=== PATIENT | male | born 1955 | race African-American/Black ===

== ENCOUNTER 2016-10-27 02:49 | Inpatient (IN) | payer MEDICAID ==
[2016-10-27] VITALS (11 sets, daily range): BP systolic 148–207; BP diastolic 64–113
[~2016-10-27] VITALS: Ht 180.3 cm; Wt 73.9 kg
[2016-10-27 03:25] LABS: MEAN CORPUSCULAR HEMOGLOBIN 28.4 PG (27.0-31.0); MEAN CORPUSCULAR HGB CONC 32.1 G/DL (32.0-36.0); MEAN CORPUSCULAR VOLUME 88 FL (80-99); PLATELET COUNT 433 K/UL (150-450); RED BLOOD COUNT 4.93 M/UL (4.70-6.10); RED CELL DISTRIBUTION WIDTH 14.3 % (11.6-14.8)
[2016-10-27 03:28] LABS: WHITE BLOOD COUNT 24.6 K/UL (4.8-10.8)
[2016-10-27] MEDS ORDERED: Ketorolac 30mg Inj IV ONE (03:30)
[2016-10-27] MEDS ORDERED: Morphine Sulfate 4mg/ml Inj IVP ONE (03:30)
[2016-10-27 03:37] LABS: ALANINE AMINOTRANSFERASE 10 U/L (3-41); ANION GAP 24 (5-15); ASPARTATE AMINO TRANSFERASE 16 U/L (5-40); CALCIUM 9.8 mg/dL (8.6-10.2); CARBON DIOXIDE 22 mEQ/L (20-30); CHLORIDE 92 mEQ/L (98-107); GLOMERULAR FILTRATION RATE > 60 mL/min (>60); HEMOLYSIS 8; POTASSIUM 3.2 mEQ/L (3.4-4.9); SODIUM 138 mEQ/L (135-145); TOTAL PROTEIN 8.9 g/dL (6.6-8.7)
[2016-10-27 03:39] LABS: TROPONIN I < 0.30 ng/mL (<=0.30)
[2016-10-27 03:47] LABS: CKMB 3.2 ng/mL (< 6.7)
[2016-10-27 03:52] LABS: BAND NEUTROPHILS % (MANUAL) 3 % (0-8); BASOPHILS % (MANUAL) 3 % (0-2); EOSINOPHILS % (MANUAL) 0 % (0-3); LYMPHOCYTES % (MANUAL) 7 % (20-45); NEUTROPHILS % (MANUAL) 82 % (45-75); PLATELET ESTIMATE ADEQUATE; PLATELET MORPHOLOGY NORMAL; TOTAL CELLS COUNTED 100
[2016-10-27 04:02] LABS: KETONES,URINE 1+ (NEGATIVE); LEUKOCYTE ESTERASE ,URINE 2+ (NEGATIVE); NITRITE,URINE NEGATIVE (NEGATIVE); PH,URINE 5 (4.5-8.0); PROTEIN,URINE 3+ (NEGATIVE); UROBILINOGEN,URINE 1 MG/DL (0.0-1.0)
[2016-10-27 04:04] LABS: APPEARANCE,URINE SLIGHTLY CLOUDY
[2016-10-27 04:09] LABS: AMORPHOUS SEDIMENT,UR MANY /LPF; BACTERIA,URINE MANY /HPF; RBC,URINE 30-40 /HPF (0 - 0); SQUAMOUS EPITHELIAL CELL,UR FEW /LPF (NONE/OCC); WBC,URINE 15-20 /HPF (0 - 0)
[2016-10-27 04:09] LABS: REFLEX LACTIC ACID YES OR NO YES
[2016-10-27] MEDS ORDERED: NS 1000ml 2,200 ML IVLG ONE (04:30)
[2016-10-27] MEDS ORDERED: cefTRIAXone 1 GM in NS 55 ML IVPB ONE (04:30)
[2016-10-27] MEDS ORDERED: NIFEDIPINE ER90 M2 ORAL (05:17)
--- NOTE | 2016-10-27 05:38 | Emergency Room Report ---
History of Present Illness General Chief Complaint: Lower Extremity Injury Source: Significant Other, EMS Present Illness HPI 60-year-old male presents to ED for evaluation. Per EMS patient called 911 because he was complaining of leg pain which started at 1:30 this morning. Denies trauma. Patient points to his calves stating there is pain. Pain is a 10 out of 10. Sharp. Nonradiating. No other aggravating or relieving factors. Denies chest pain or shortness of breath. Denies fevers or chills. Denies nausea or vomiting. Patient is poor historian-does not know his medications or his PMD. is at bedside states that patient has triggered chronic back and leg pain. Takes OxyContin. Patient also has history of hypertension. History of CVA with left-sided weakness. Denies any other associated symptoms Allergies: Coded Allergies: No Known Allergies (Unverified , 10/27/16) Patient History Past Medical History: HTN, CVA/TIA Past Surgical History: none Pertinent Family History: none Social History: Denies: alcohol use, drug use, smoking Immunizations: UTD Reviewed Nursing Documentation: PMH: Agreed, PSxH: Agreed Nursing Documentation-PMH Hx Cardiac Problems: Yes Hx Hypertension: Yes Hx Cerebrovascular Accident: Yes - LEFT SIDE WEAKNESS Review of Systems All Other Systems: negative except mentioned in HPI Physical Exam Vital Signs Date Time Temp Pulse Resp B/P Pulse Ox O2 Delivery O2 Flow Rate FiO2 10/27/16 02:42 97.5 98 20 201/108 100 Room Air Sp02 EP Interpretation: reviewed, normal General Appearance: alert, GCS 15, non-toxic, mild distress, cachetic, thin Head: normocephalic Eyes: bilateral eye PERRL, bilateral eye normal inspection ENT: normal ENT inspection Neck: normal inspection Respiratory: chest non-tender, lungs clear, normal breath sounds, speaking full sentences Cardiovascular #1: regular rate, rhythm, no edema Gastrointestinal: normal bowel sounds, non tender, soft, non-distended, no guarding, no rebound Rectal: deferred Genitourinary: no CVA tenderness Musculoskeletal: normal inspection Neurologic: alert, responsive, motor strength/tone normal, sensory intact, speech normal Psychiatric: no suicidal/homicidal ideation, no delusions Skin: normal inspection Lymphatic: normal inspection Medical Decision Making Diagnostic Impression: Primary Impression: Sepsis Qualified Codes: A41.9 - Sepsis, unspecified organism Additional Impressions: UTI (urinary tract infection) Qualified Codes: N39.0 - Urinary tract infection, site not specified Hypertensive urgency Chronic pain Qualified Codes: G89.29 - Other chronic pain ER Course Hospital Course 60-year-old male presenting to ED with bilateral leg pain, hypertensive. patient is poor historian Differential diagnoses include: Pneumonia, UTI, sepsis, dehydration, MO/ unstable angina Clinical course Patient placed on stretcher. 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 After initial history and physical, I ordered labs, IV fluids, EKG, chest x-ray, blood cultures, UA. Labs - electrolytes ok, marked leukocytosis, troponins negative, lactate 3.5, UA grossly positive for UTI CXR - no acute process Abx given. Patient given 30 mL per KG fluid bolus. patient required multiple rounds of blood pressure medication with BP control Case discussed with Dr Lee and they agreed to admit patient to their service for further care and support I feel this is a highly complex case requiring extensive working including EKG/ Rhythm strip, Xray/CT/US, Blood/urine lab work, repeat exams while in ED, and administration of strong opiates/narcotics for pain control, admission to hospital or close patient follow up. Diagnosis - sepsis, UTI, hypertensive urgency, chronic pain Patient admitted to telemetry in serious condition Labs Test 10/27/16 03:15 10/27/16 03:40 10/27/16 04:00 White Blood Count 24.6 K/UL (4.8-10.8) Red Blood Count 4.93 M/UL (4.70-6.10) Hemoglobin 14.0 G/DL (14.2-18.0) Hematocrit 43.6 % (42.0-52.0) Mean Corpuscular Volume 88 FL (80-99) Mean Corpuscular Hemoglobin 28.4 PG (27.0-31.0) Mean Corpuscular Hemoglobin Concent 32.1 G/DL (32.0-36.0) Red Cell Distribution Width 14.3 % (11.6-14.8) Platelet Count 433 K/UL (150-450) Mean Platelet Volume 6.0 FL (6.5-10.1) Neutrophils (%) (Auto) % (45.0-75.0) Lymphocytes (%) (Auto) % (20.0-45.0) Monocytes (%) (Auto) % (1.0-10.0) Eosinophils (%) (Auto) % (0.0-3.0) Basophils (%) (Auto) % (0.0-2.0) Differential Total Cells Counted 100 Neutrophils % (Manual) 82 % (45-75) Lymphocytes % (Manual) 7 % (20-45) Monocytes % (Manual) 5 % (1-10) Eosinophils % (Manual) 0 % (0-3) Basophils % (Manual) 3 % (0-2) Band Neutrophils 3 % (0-8) Platelet Estimate Adequate Platelet Morphology Normal Red Blood Cell Morphology Normal Sodium Level 138 mEQ/L (135-145) Potassium Level 3.2 mEQ/L (3.4-4.9) Chloride Level 92 mEQ/L (98-107) Carbon Dioxide Level 22 mEQ/L (20-30) Anion Gap 24 (5-15) Blood Urea Nitrogen 16 mg/dL (7-23) Creatinine 1.0 mg/dL (0.7-1.2) Estimat Glomerular Filtration Rate > 60 mL/min (>60) Glucose Level 216 mg/dL (74-106) Calcium Level 9.8 mg/dL (8.6-10.2) Total Bilirubin 0.3 mg/dL (0.0-1.2) Aspartate Amino Transf (AST/SGOT) 16 U/L (5-40) Alanine Aminotransferase (ALT/SGPT) 10 U/L (3-41) Alkaline Phosphatase 105 U/L (40-129) Total Creatine Kinase 126 U/L (38-174) Creatine Kinase MB 3.2 ng/mL (< 6.7) Creatine Kinase MB Relative Index 2.5 Troponin I < 0.30 ng/mL (<=0.30) Total Protein 8.9 g/dL (6.6-8.7) Albumin 4.5 g/dL (3.5-5.2) Globulin 4.4 g/dL Albumin/Globulin Ratio 1.0 (1.0-2.7) Lactic Acid Level 3.50 mmol/L (0.66-2.22) Urine Color Yellow Urine Appearance Slightly cloudy Urine pH 5 (4.5-8.0) Urine Specific [place] 1.025 (1.005-1.035) Urine Protein 3+ (NEGATIVE) Urine Glucose (UA) 1+ (NEGATIVE) Urine Ketones 1+ (NEGATIVE) Urine Occult Blood 5+ (NEGATIVE) Urine Nitrite Negative (NEGATIVE) Urine Bilirubin Negative (NEGATIVE) Urine Urobilinogen 1 MG/DL (0.0-1.0) Urine Leukocyte Esterase 2+ (NEGATIVE) Urine RBC 30-40 /HPF (0 - 0) Urine WBC 15-20 /HPF (0 - 0) Urine Squamous Epithelial Cells Few /LPF (NONE/OCC) Urine Amorphous Sediment Many /LPF (NONE) Urine Bacteria Many /HPF (NONE) EKG Diagnostic Results Rate: normal Rhythm: NSR ST Segments: other - LVH ASA given to the pt in ED: No Rhythm Strip Diag. Results EP Interpretation: yes Rhythm: NSR, no PVC's, no ectopy Chest X-Ray Diagnostic Results EP Interpretation: Yes Findings: no consolidation, no effusion, no pneumothorax, no acute cardiopulmonary disease Number of Views: 1 Last Vital Signs Date Time Temp Pulse Resp B/P Pulse Ox O2 Delivery O2 Flow Rate FiO2 10/27/16 04:39 193/105 10/27/16 04:04 97.5 83 13 100 Room Air Status: improved Disposition: ADMITTED INPATIENT Condition: Serious Referrals: [facility],REFERRING (PCP) ANGELITA XIONG M.D. Oct 27, 2016 05:38
[2016-10-27] MEDS ORDERED: Enalaprilat 2.5mg/2ml Inj IV ONE ×2 (07:23→07:30)
--- NOTE | 2016-10-27 18:59 | History and Physical Report ---
DATE OF ADMISSION: 10/27/2016 HISTORY OF PRESENT ILLNESS: This is a 60-year-old male, who came to the hospital with left leg pain. He states that his calves are hurting him. He was found to be markedly hypertensive. He was also found to have a urinary tract infection. The patient is a very poor historian. The patient reports chronic back and leg pain. He takes OxyContin. He also has history of hypertension. He has history of previous CVA with left-sided weakness. PAST MEDICAL HISTORY: Hypertension, previous CVA. PREVIOUS SURGERIES: None recalled. HOME MEDICATIONS: The patient is unable to recall. REVIEW OF SYSTEMS: Denies any headaches, hematemesis, melena, hematochezia, night sweats, or weight loss. PHYSICAL EXAMINATION: GENERAL: Reveals a 60-year-old male looking much older than stated age. VITAL SIGNS: Blood pressure earlier was 200/108, respirations of 20 with a heart rate of 98. Most recent vital signs show blood pressure 180/80, heart rate is 85, respirations 17, he is afebrile, and O2 saturation is 96% on room air. HEENT: Unremarkable. CHEST: Shows clear breath sounds bilaterally. ABDOMEN: Soft. EXTREMITIES: There is no edema. NEUROLOGIC: Notable for left-sided weakness. LABORATORY DATA: Lab testing shows white count 24,000, hemoglobin of 14. Remainder of chemistries unremarkable with a potassium of 3.2 and a glucose of 216. Lactic acid 3.5, follow up was 1.5. Troponin negative x1. Urinalysis shows multiple WBCs. IMAGING STUDIES: None reported. IMPRESSION: 1. Urinary tract infection. 2. Marked leukocytosis. 3. Chronic pain. 4. Hypertension. 5. Previous cerebrovascular accident. DISCUSSION: We will admit him to the hospital. Continue home medications. Start intravenous antibiotics. Pain management consult. ID consult. We will follow as skip tracer. Hemant Lee M.D. DR: SHAMEKA JOB#: [id number] CC:
[2016-10-27] MEDS: Metoprolol 25mg tab ORAL SCH (21:39)
[2016-10-27] MEDS: Heparin 5000 units/ml inj SUBQ SCH (21:43)
[2016-10-28] VITALS: BP 123/85
[2016-10-28 04:30] VITALS: BP 197/87
[2016-10-28 08:13] VITALS: BP 167/97
[2016-10-28 09:36] LABS: BASOPHILS % (AUTO) 1.4 % (0.0-2.0); EOSINOPHILS % (AUTO) 3.1 % (0.0-3.0); LYMPHOCYTES % (AUTO) 15.5 % (20.0-45.0); MEAN CORPUSCULAR HEMOGLOBIN 28.5 PG (27.0-31.0); MEAN CORPUSCULAR HGB CONC 32.2 G/DL (32.0-36.0); MEAN CORPUSCULAR VOLUME 89 FL (80-99); MONOCYTES % (AUTO) 6.1 % (1.0-10.0); PLATELET COUNT 366 K/UL (150-450); RED BLOOD COUNT 4.39 M/UL (4.70-6.10); RED CELL DISTRIBUTION WIDTH 14.6 % (11.6-14.8); WHITE BLOOD COUNT 8.7 K/UL (4.8-10.8)
[2016-10-28 09:47] LABS: ANION GAP 14 (5-15); CALCIUM 9.2 mg/dL (8.6-10.2); CARBON DIOXIDE 24 mEQ/L (20-30); CHLORIDE 100 mEQ/L (98-107); CREATININE 0.8 mg/dL (0.7-1.2); GLOMERULAR FILTRATION RATE > 60 mL/min (>60); HEMOLYSIS 5; SODIUM 138 mEQ/L (135-145)
[2016-10-28] MEDS: Metoprolol 25mg tab ORAL SCH (09:57)
[2016-10-28] MEDS: Heparin 5000 units/ml inj SUBQ SCH (09:58)
--- NOTE | 2016-10-28 10:03 | Cardiology Report ---
APPROVED REPORT EKG Measurement Heart [id number] Normal sinus rhythm Right atrial enlargement Left ventricular hypertrophy with repolarization abnormality Cannot rule out Septal infarct, age undetermined Abnormal ECG
--- NOTE | 2016-10-28 10:53 | Diagnostic Imaging Report ---
Clinical history: Chest pain. Technique: Portable AP chest radiograph was obtained. Comparison: None Findings: The lungs are well inflated and clear. There is no pneumonia or pulmonary edema. There is no pleural effusion or pneumothorax. The cardiac and mediastinal silhouettes are normal in appearance. The bony thorax is unremarkable. Impression: No acute cardiopulmonary process.
--- NOTE | 2016-10-28 11:01 | Pulmonology Progress Note ---
Assessment/Plan Assessment/Plan IMPRESSION: 1. Urinary tract infection. 2. Marked leukocytosis. 3. Chronic pain. 4. Hypertension. 5. Previous cerebrovascular accident. DISCUSSION: DC Home PO abx Subjective Interval Events: Doing better; anxious to go home Constitutional: Reports: no symptoms HEENT: Repors: no symptoms Respiratory: Reports: no symptoms Cardiovascular: Reports: no symptoms Gastrointestinal/Abdominal: Reports: no symptoms Genitourinary: Reports: no symptoms Allergies: Coded Allergies: No Known Allergies (Unverified , 10/27/16) Objective Last 24 Hour Vital Signs Date Time Temp Pulse Resp B/P Pulse Ox O2 Delivery O2 Flow Rate FiO2 10/28/16 09:57 62 167/97 10/28/16 09:57 62 167/97 10/28/16 08:13 97.3 62 20 167/97 99 Room Air 10/28/16 05:27 197/87 10/28/16 04:30 197/87 10/28/16 04:30 97.9 66 20 96 Room Air 10/28/16 03:52 63 10/28/16 00:00 97.0 63 20 123/85 99 Room Air 10/27/16 23:45 74 10/27/16 21:39 80 148/64 10/27/16 20:00 97.0 80 19 148/64 98 Room Air 10/27/16 19:53 58 10/27/16 19:52 71 10/27/16 16:00 75 10/27/16 16:00 97.0 76 18 164/89 98 Room Air 10/27/16 12:00 97.5 78 16 156/98 100 Room Air 10/27/16 12:00 76 Intake and Output 10/27/16 10/28/16 19:00 07:00 Output Total 300 ml Balance -300 ml Output Urine Total 300 ml # Voids 3 4 # Bowel Movements 1 General Appearance: no acute distress HEENT: normocephalic Respiratory/Chest: chest wall non-tender, lungs clear Cardiovascular: normal peripheral pulses, normal rate Microbiology Date/Time Source Procedure Growth Status 10/27/16 04:00 Urine,Clean Catch Urine Culture - Preliminary Streptococcus Species Resulted Laboratory Tests 10/28/16 08:15: White Blood Count 8.7#, Red Blood Count 4.39L, Hemoglobin 12.5L, Hematocrit 38.9L, Mean Corpuscular Volume 89, Mean Corpuscular Hemoglobin 28.5, Mean Corpuscular Hemoglobin Concent 32.2, Red Cell Distribution Width 14.6, Platelet Count 366, Mean Platelet Volume 6.0L, Neutrophils (%) (Auto) 74.0, Lymphocytes ( %) (Auto) 15.5L, Monocytes (%) (Auto) 6.1, Eosinophils (%) (Auto) 3.1H, Basophils (%) (Auto) 1.4, Sodium Level 138, Potassium Level 4.0, Chloride Level 100, Carbon Dioxide Level 24, Anion Gap 14, Blood Urea Nitrogen 10, Creatinine 0.8, Estimat Glomerular Filtration Rate > 60, Glucose Level 95#, Calcium Level 9.2 Current Medications Medications (Trade) Dose Ordered Sig/Nishant Route PRN Reason Start Time Stop Time Status Last Admin Dose Admin Clonidine HCl 0.1 mg 0.1 mg Q4H PRN ORAL For High Blood Pressure 10/27/16 11:15 11/26/16 11:14 10/28/16 05:27 Heparin Sodium (Porcine) (Heparin 5000 units/ml) 5,000 units EVERY 12 HOURS SUBQ 10/27/16 21:00 11/26/16 20:59 10/28/16 09:58 Levofloxacin (Levaquin) 100 ml @ 100 mls/hr Q24H IVPB 10/27/16 12:00 11/03/16 11:59 10/27/16 13:43 Metoprolol Tartrate (Lopressor) 25 mg Q12HR ORAL 10/27/16 21:00 11/26/16 20:59 10/28/16 09:57 Nifedipine (Procardia XL) 90 mg DAILY ORAL 10/28/16 09:00 11/27/16 08:59 10/28/16 09:57 Oxycodone/ Acetaminophen (Percocet 10/325) 1 tab Q4H PRN ORAL severe pain 10/27/16 15:15 11/03/16 15:14 Hemant Lee MD Oct 28, 2016 11:01
[2016-10-28] MEDS ORDERED: PERCOCET 10-321 EACH ORAL (11:03)
[2016-10-28] MEDS ORDERED: LEVAQUIN500 MG ORAL (11:03)
[2016-10-28] MEDS ORDERED: LOPRESSOR25 M1 ORAL (11:03)
[2016-10-28 11:29] VITALS: BP 199/107
[2016-10-28 11:32] VITALS: BP 199/107
--- NOTE | 2016-10-28 14:29 | Cardiology Progress Note ---
Assessment/Plan Assessment/Plan The patient is seen and examined, full consult will be dictated. Objective Last 24 Hour Vital Signs Date Time Temp Pulse Resp B/P Pulse Ox O2 Delivery O2 Flow Rate FiO2 10/28/16 11:32 199/107 10/28/16 11:29 97.6 68 20 199/107 98 Room Air 10/28/16 09:57 62 167/97 10/28/16 09:57 62 167/97 10/28/16 08:13 97.3 62 20 167/97 99 Room Air 10/28/16 08:00 63 10/28/16 05:27 197/87 10/28/16 04:30 197/87 10/28/16 04:30 97.9 66 20 96 Room Air 10/28/16 03:52 63 10/28/16 00:00 97.0 63 20 123/85 99 Room Air 10/27/16 23:45 74 10/27/16 21:39 80 148/64 10/27/16 20:00 97.0 80 19 148/64 98 Room Air 10/27/16 19:53 58 10/27/16 19:52 71 10/27/16 16:00 75 10/27/16 16:00 97.0 76 18 164/89 98 Room Air Intake and Output 10/27/16 10/28/16 19:00 07:00 Output Total 300 ml Balance -300 ml Output Urine Total 300 ml # Voids 3 4 # Bowel Movements 1 Laboratory Tests Test 10/28/16 08:15 White Blood Count 8.7 K/UL (4.8-10.8) # Red Blood Count 4.39 M/UL (4.70-6.10) L Hemoglobin 12.5 G/DL (14.2-18.0) L Hematocrit 38.9 % (42.0-52.0) L Mean Corpuscular Volume 89 FL (80-99) Mean Corpuscular Hemoglobin 28.5 PG (27.0-31.0) Mean Corpuscular Hemoglobin Concent 32.2 G/DL (32.0-36.0) Red Cell Distribution Width 14.6 % (11.6-14.8) Platelet Count 366 K/UL (150-450) Mean Platelet Volume 6.0 FL (6.5-10.1) L Neutrophils (%) (Auto) 74.0 % (45.0-75.0) Lymphocytes (%) (Auto) 15.5 % (20.0-45.0) L Monocytes (%) (Auto) 6.1 % (1.0-10.0) Eosinophils (%) (Auto) 3.1 % (0.0-3.0) H Basophils (%) (Auto) 1.4 % (0.0-2.0) Sodium Level 138 mEQ/L (135-145) Potassium Level 4.0 mEQ/L (3.4-4.9) Chloride Level 100 mEQ/L (98-107) Carbon Dioxide Level 24 mEQ/L (20-30) Anion Gap 14 (5-15) Blood Urea Nitrogen 10 mg/dL (7-23) Creatinine 0.8 mg/dL (0.7-1.2) Estimat Glomerular Filtration Rate > 60 mL/min (>60) Glucose Level 95 mg/dL (74-106) # Calcium Level 9.2 mg/dL (8.6-10.2) Microbiology Date/Time Source Procedure Growth Status 10/27/16 04:00 Urine,Clean Catch Urine Culture - Preliminary Streptococcus Species Resulted BOOGIE FLOREZ Oct 28, 2016 14:29
[2016-10-28] MEDS ORDERED: Tubing IV Secondary IV ONE (15:42)
--- NOTE | 2016-10-28 20:58 | Consultation ---
DATE OF CONSULTATION: 10/28/2016 CARDIOLOGY CONSULTATION CONSULTING PHYSICIAN: Sven Chinchilla M.D. REFERRING PHYSICIAN: Hemant Lee M.D. REASON FOR CONSULTATION: Management of accelerated hypertension. HISTORY OF PRESENT ILLNESS: The patient is a very pleasant 60-year-old gentleman, who presents to the hospital with leg pain mainly involving his calf, intensity of pain 10/10, nonradiating, with no exacerbation with exercise. The patient also has chronic low back pain. On arrival to the hospital, he was noted to have a blood pressure 201/108 mmHg. Therefore, Cardiology consultation was made at the request of Dr. Lee for management of accelerated hypertension. The patient denied any chest pain or shortness of breath. PAST MEDICAL HISTORY: Hypertension and CVA/transient ischemic attack. PAST SURGICAL HISTORY: None. SOCIAL HISTORY: Denies any alcohol, tobacco, or illicit drug use. ALLERGIES: No known drug allergies. MEDICATIONS: List of medication includes levofloxacin 500 mg p.o. daily, metoprolol 25 mg p.o. twice daily, nifedipine 90 mg by mouth daily, and oxycodone and acetaminophen 10/325 mg one tablet q.4 h. p.r.n. pain. REVIEW OF SYSTEMS: A 12-system review done essentially negative except what mentioned in the history of present illness. PHYSICAL EXAMINATION: VITAL SIGNS: Blood pressure was 201/108, pulse of 98, respirations 20, and O2 saturation 100% on room air. GENERAL: The patient is a very unfortunate 60-year-old gentleman, in no apparent respiratory distress, appears to be cachectic. HEENT: Atraumatic and normocephalic. Anicteric. Pupils are equal, round, and reactive to light and accommodation. Extraocular muscles intact. NECK: JVP is less than 5 cm. No carotid bruits. Carotid upstrokes, 2+ bilaterally. CVS: Normal S1 and S2. Regular rate and rhythm. A 2/6 midsystolic murmur at the left sternal border. PMI is at fourth intercostal space at midclavicular line. LUNGS: Clear to auscultation bilaterally. ABDOMEN: Soft, nontender, and nondistended. No hepatosplenomegaly. Positive bowel sounds. EXTREMITIES: There is decreased motor function on the left side, otherwise no edema, clubbing, or cyanosis. LABORATORY AND DIAGNOSTIC DATA: Laboratory findings: WBC is 24.6, hemoglobin 14.0, hematocrit 43.6, and platelet count 433,000. Sodium was 138, potassium 3.2, chloride 92, bicarbonate 22, BUN of 16, creatinine 1.0, glucose is 216, and calcium is 9.8. Troponin I was less than 0.3. Chest x-ray showed no acute cardiopulmonary disease. A 12-lead electrocardiogram showed sinus rhythm at a rate of 83 with left ventricular hypertrophy and repolarization abnormalities. There is also right atrial enlargement. ASSESSMENT AND PLAN: The patient is a very unfortunate 60-year-old gentleman, seen in Cardiology consultation at request of Dr. Lee. 1. Accelerated hypertension. I would agree with continuation of nifedipine and beta-blockers. The patient will be also on clonidine 0.1 mg q.4 hours as needed. The patient may require diuretic therapy. The last blood pressure was quite elevated this morning at 199/107 mmHg. If the hydrochlorothiazide 25 mg daily not adequate, we will consider adding Aldactone 25 mg p.o. daily. 2. History of cerebrovascular accident with left hemiparesis. The patient will be required to be on aspirin 81 mg p.o. daily. 3. Chronic low back pain. I would like to thank, Dr. Lee, for allowing me to participate in the care of this patient. Sven Chinchilla M.D. DR: HANANE JOB#: [id number] CC:
[2016-10-29] MEDS ORDERED: ASPIRIN81 M3 PO (10:59)
--- NOTE | 2016-10-29 11:01 | Discharge Summary ---
Discharge Summary Hospital Course Date of Admission Oct 27, 2016 at 07:06 Date of Discharge Oct 28, 2016 at 15:43 Admitting Diagnosis UTI,HYPERTENSION HPI Kang Croft is a 60 year old male who was admitted on Oct 27, 2016 at 07:06 for Urinary Tract Infection, Hypertension Hospital Course dc summary dictated #[id number] Discharge Medications New Medications: Aspirin (Aspirin) 81 Mg Tab.chew 81 MG PO DAILY, #30 TAB Levofloxacin* (Levaquin*) 500 Mg Tablet 500 MG ORAL DAILY for 10 Days, TAB Metoprolol Tartrate (Metoprolol Tartrate) 25 Mg Tablet 25 MG ORAL Q12HR for 30 Days, TAB Oxycodone Hcl/Acetaminophen 10-325 Mg Tablet (Percocet 10-325 Mg Tablet*) 1 Each Tablet 1 TAB ORAL Q4H PRN for 30 Days, TAB Continued Medications: Nifedipine Er* (Nifedipine Er*) 90 Mg Tablet.er 90 MG ORAL DAILY, TAB Discharge Condition Upon Discharge: improving Discharge Disposition Patient was discharged to Home (01) Due to the rapid and unexpected improvement in patient condition, the patient was discharged home in 1 days,. Discharge Diagnoses: Discharge Instructions Discharge Instructions Special Instructions I have been assigned to complete a D/C Summary on this account. I was not involved in the patient management Muna Pelaez NP (Vanchtein) Oct 29, 2016 11:01
--- NOTE | 2016-10-30 04:48 | Discharge Summary 2 SIG ---
DATE OF ADMISSION: 10/27/2016 DATE OF DISCHARGE: 10/28/2016 REASON FOR ADMISSION: 60-year-old male who presented to emergency department by paramedics complaining of leg pain. No trauma. No injury. Pain was 10/10, sharp, and nonradiating. He denied chest pain or shortness of breath. Denied fever. Denied chills. No nausea. No vomiting. The patient overall was a poor historian and did not know his medications or his primary medical doctor. at the bedside reported that patient had a chronic back pain and leg pain. The patient has a known history of hypertension and CVA with left-sided weakness. Workup in the emergency department revealed marked leukocytosis of 24.6. The patient was afebrile. Potassium was 3.2. Lactic acid was elevated at 3.5. Troponin was negative. Urinalysis revealed pyuria and positive for leukocyte esterase as well as many bacteria. Chest x-ray was negative for any acute cardiopulmonary disease. Electrolytes and LFTs were stable. Anion gap elevated at 24. Electrolytes except potassium were stable. EKG revealed normal sinus rhythm. No ischemic changes. No premature ventricular contraction. No ectopy. In the emergency department, potassium was replaced. The patient was started on empiric antibiotics, after septic workup up initiated. The patient also presented with elevated blood pressure of 201/108. Antihypertensive provided in the emergency department. The patient was admitted to the hospital for further management. ADMITTING DIAGNOSES: 1. Sepsis. 2. Urinary tract infection. 3. Hypertensive urgency. 4. Chronic back pain. 5. Hypokalemia. HOSPITAL STAY: The patient was admitted on the telemetry floor. Cardiology followed for accelerated blood pressure. The patient was started on calcium channel jose and beta-jose as well as the clonidine as needed. Blood pressure improved with the current regimen. Cellophane Tester followed. The patient was on empiric antibiotics. Blood culture negative. Urine culture revealed E. coli. On the next day, leukocytosis resolved. The patient was afebrile. Lytes were stable. Due to the rapid and unexpected improvement in patient's condition, the patient was discharged home in one day on oral antibiotics to be continued. DISCHARGE DIAGNOSES: 1. Sepsis. 2. Urinary tract infection. 3. Hypertensive urgency. 4. Hypokalemia. 5. Chronic back pain. 6. History of cerebrovascular accident with left hemiparesis DISCHARGE MEDICATIONS: See medication reconciliation list. DISCHARGE INSTRUCTIONS: The patient was discharged home to follow up with the primary medical doctor next week. Hemant Lee M.D. I have been assigned to dictate discharge summary on this account and I was not involved in the patient's management. Muna Castrejonsandro N.PNorberto DR: TREMAYNE JOB#: [id number] CC: DIANA
== END 2016-10-28 15:43 | disposition home or self-care (01) | DRG 463 ==
LOC: EDBD 02:49 → EMR 03:27 → EDBEDREQ 06:35 → 2E 07:06 → EDBEDREQ 08:29
DX: N39.0 Urinary tract infection, site not specified (principal); I69.354 Hemiplegia and hemiparesis following cerebral infarction affecting left non-dominant side; I10 Essential (primary) hypertension; G89.29 Other chronic pain; M54.5 Low back pain; E87.6 Hypokalemia; B96.20 Unspecified Escherichia coli [E. coli] as the cause of diseases classified elsewhere; M79.606 Pain in leg, unspecified
CPT/HCPCS: 36415; 71010; 80048; 80053; 81003; 82550; 82553; 83605; 84484; 85007; 85025; 87040; 87081; 87086; 87181; 93005; J8499